=== PATIENT | male | born 1985 | race Caucasian/White ===

== ENCOUNTER → 2016-10-02 10:33 | Emergency (ER) | payer MEDICAID ==
[~2016-10-02 10:33] MED LIST: Gabapentin CAP(*) 300 MG PO ONE; Mouth Piece, Nicotine* 1 EACH CARTRIDGE ONE; Nicotine Inhaler* 10 MG AMP INH ONE; diPHENhydraMINE IV* 50 MG/ML 1 ml VIAL (BENADRYL) IM ONE
[2016-10-02 11:04] VITALS: BP 110/84
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
[2016-10-02 11:47] LABS: Hematocrit 40 % (42-52); Hemoglobin 13.4 g/dl (14.0-18.0); Mean Corpuscular HGB Conc 33 g/dl (31-36); Mean Corpuscular Hemoglobin 29 pg (27-31); Mean Corpuscular Volume 88 fL (80-94); Mean Platelet Volume 9 um3 (7.4-10.4); Red Blood Count 4.59 10^6/ul (4.0-5.4); Red Cell Distribution Width 14 % (10.5-15); White Blood Count 4.3 10^3/ul (3.5-10.8)
[2016-10-02 11:51] LABS: Urine Bilirubin Negative (Negative); Urine Glucose Negative (Negative); Urine Nitrite Negative (Negative)
[2016-10-02 12:05] LABS: AST 968 U/L (13-39); Albumin 4.2 g/dL (3.2-5.2); Alkaline Phosphatase 172 U/L (34-104); Anion Gap 7 mmol/L (2-11); BUN/Creatinine Ratio 20.5 (8-20); Blood Urea Nitrogen 17 mg/dL (6-24); CO2 Carbon Dioxide 26 mmol/L (22-32); Calcium 10.1 mg/dL (8.6-10.3); Chloride 102 mmol/L (101-111); EGFR African American 137.2 (>60); EGFR Non-African American 106.7 (>60); Globulin 3.1 g/dL (2-4); Glucose 100 mg/dL (70-100); Sodium 135 mmol/L (133-145); Total Protein 7.3 g/dL (6.4-8.9)
[2016-10-02 12:07] LABS: Benzodiazepine Urine Screen Presumptive Positive (None Detect)
[2016-10-02 12:08] LABS: Acetaminophen < 15 mcg/mL; Alcohol < 10 mg/dL (<10); Salicylate < 2.50 mg/dL (<30)
[2016-10-02 12:18] LABS: TSH (Thyroid Stimulating Horm) 0.79 mcIU/mL (0.34-5.60)
[2016-10-02 12:35] LABS: ALT 1141 U/L (7-52)
== END | disposition short-term general hospital (02) ==
LOC: ED 10:33
DX: R79.89 Other specified abnormal findings of blood chemistry (principal); F41.9 Anxiety disorder, unspecified; K75.9 Inflammatory liver disease, unspecified
CPT/HCPCS: 36415; 80053; 80307; 80320; 80329; 81003; 84443; 85025; 96372; 99283; A9270-GY; G0480; J1200

== ENCOUNTER 2016-10-02 15:46 | Observation (INO) | payer MEDICAID ==
[2016-10-02] MEDS ORDERED: Ibuprofen TAB* 600 MG PO ONE (17:51)
[2016-10-02] MEDS ORDERED: Nicotine Inhaler* 10 MG AMP INH PRN (17:51)
[2016-10-02] MEDS ORDERED: Nicotine Inhaler* 10 MG AMP ONE (18:02)
[2016-10-02] MEDS ORDERED: Mouth Piece, Nicotine* 1 EACH CARTRIDGE INH ONE (18:05)
[2016-10-02] MEDS ORDERED: Buprenorphine/Naloxone 8-2 MG SL TAB* 1 TAB PO ONE (18:15)
[2016-10-02] MEDS ORDERED: Ibuprofen TAB* 200 MG PO PRN (19:22)
[2016-10-02] MEDS ORDERED: traZODone TAB* 50 MG TAB PO PRN (19:22)
[2016-10-02] MEDS ORDERED: Docusate CAP* 100 MG PO PRN (19:22)
[2016-10-02] MEDS ORDERED: Polyethylene Glycol 3350* 17 GM PACKET PO PRN (19:22)
[2016-10-02] MEDS ORDERED: Aspirin EC Low Dose* 81 MG TAB.EC PO PRN (19:22)
[2016-10-02] MEDS ORDERED: NON FORMULARY MED* (Melatonin [Melatonin] 5 MG) PO PRN (19:22)
[2016-10-02] MEDS ORDERED: Magnesium Hydroxide LIQ* 30 ML UDC PO PRN (19:22)
[2016-10-02] MEDS ORDERED: Senna TAB PO SCH (21:00)
[2016-10-02] MEDS ORDERED: Nicotine Patch Removal NOTE PATCH OFF SCH (21:00)
[2016-10-02] MEDS: Nicotine Inhaler* 10 MG AMP INH PRN ×2 (21:01→23:25)
[2016-10-02] MEDS: Gabapentin CAP(*) 300 MG PO SCH (21:03)
--- NOTE | 2016-10-02 21:03 | RAD ---
Indication: Transaminitis. Comparison: No relevant prior exams available on the [facility] for comparison. Technique: RIGHT upper quadrant ultrasound. Report: Appropriate direction flow documented in the portal and hepatic veins. 17.1 cm liver is mildly increased in echogenicity. Negative for focal hepatic lesions. Negative for intrahepatic biliary dilatation. 6.3 mm top normal common bile duct. No stones visualized within the common bile duct. Distended gallbladder measuring up to 13 cm in length and 2.4 cm diameter without visualized stones, sludge, or wall thickening with 2.3 mm wall. Negative for sonographic Harper's sign. The pancreatic tail is partially obscured due to bowel gas with the visualized pancreas without evidence for focal lesions. Minimally prominent pancreatic duct measuring up to 2 mm diameter. Negative for ascites. 12.9 cm RIGHT kidney is unremarkable. IMPRESSION: 1. Mildly echogenic liver suggesting hepatosteatosis. 2. Distended gallbladder without wall thickening or other pathologic finding. Negative for sonographic Harper's sign. 3. Minimal prominence of the pancreatic duct without additional sonographic abnormality of the pancreas. 4. Negative for ascites.
[2016-10-02] MEDS: cloNIDine TAB* 0.1 MG PO SCH (21:06)
[2016-10-02] MEDS: Haloperidol TAB* 2 MG PO SCH (21:06)
[2016-10-02] MEDS: busPIRone TAB* 5 MG PO SCH (21:06)
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
[2016-10-03] MEDS: Nicotine Inhaler* 10 MG AMP INH PRN ×6 (03:00→16:25)
[2016-10-03 05:52] LABS: Hematocrit 41 % (42-52); Hemoglobin 13.4 g/dl (14.0-18.0); Mean Corpuscular HGB Conc 33 g/dl (31-36); Mean Corpuscular Hemoglobin 29 pg (27-31); Mean Corpuscular Volume 88 fL (80-94); Mean Platelet Volume 9 um3 (7.4-10.4); Red Cell Distribution Width 14 % (10.5-15); White Blood Count 4.1 10^3/ul (3.5-10.8)
[2016-10-03 06:03] LABS: BUN/Creatinine Ratio 16.9 (8-20); Calcium 9.9 mg/dL (8.6-10.3); Direct Bilirubin 0.4 mg/dL (0.03-0.18); EGFR African American 137.2 (>60); EGFR Non-African American 106.7 (>60); Globulin 2.9 g/dL (2-4); Indirect Bilirubin 0.5 mg/dL (0.3-1.0); Potassium 4.1 mmol/L (3.5-5.0); Total Bilirubin 0.9 mg/dL (0.2-1.0); Total Protein 6.9 g/dL (6.4-8.9)
[2016-10-03] MEDS: busPIRone TAB* 5 MG PO SCH ×2 (08:15→09:17)
[2016-10-03] MEDS: lamoTRIgine TAB(*) 25 MG PO SCH ×2 (08:15→09:17)
[2016-10-03] MEDS: Haloperidol TAB* 2 MG PO SCH (08:15)
[2016-10-03] MEDS: Gabapentin CAP(*) 300 MG PO SCH ×2 (08:16→14:23)
[2016-10-03] MEDS: cloNIDine TAB* 0.1 MG PO SCH ×2 (08:16→08:53)
[2016-10-03 08:19] VITALS: BP 95/65
[2016-10-03] MEDS ORDERED: Buprenorphine/Naloxone 8-2 MG SL TAB* 1 TAB PO ONE (08:52)
[2016-10-03] MEDS ORDERED: ARIPiprazole TAB* 5 MG PO SCH (09:00)
[2016-10-03] MEDS ORDERED: Venlafaxine EXT RELEASE CAP* 37.5 MG PO SCH (09:00)
[2016-10-03] MEDS ORDERED: Nicotine PATCH 7 MG/24 HR* PATCH TRANSDERM SCH (09:00)
[2016-10-03] MEDS ORDERED: Buprenorphine/Naloxone 8-2 MG SL TAB* 1 TAB SL SCH ×2 (09:00→18:00)
[2016-10-03] MEDS ORDERED: Sertraline* 100 MG TAB PO SCH (09:00)
[2016-10-03] MEDS ORDERED: Multivitamins/Minerals TAB PO SCH (09:00)
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
== END 2016-10-03 16:30 ==
LOC: ED 15:46 → MED 19:19
PROVIDERS: ADMIT Internal Medicine; ATTEND Internal Medicine
DX: R74.0 Nonspecific elevation of levels of transaminase and lactic acid dehydrogenase [LDH] (principal); B19.20 Unspecified viral hepatitis C without hepatic coma; F41.9 Anxiety disorder, unspecified; N18.6 End stage renal disease; R91.1 Solitary pulmonary nodule; I38 Endocarditis, valve unspecified; F11.10 Opioid abuse, uncomplicated; Z79.82 Long term (current) use of aspirin; Z79.899 Other long term (current) drug therapy; F17.210 Nicotine dependence, cigarettes, uncomplicated
CPT/HCPCS: 36415; 76705; 80048; 80076; 85025; 85610; 99283; A9270-GY; G0378